=== PATIENT | female | born 2000 ===

== ENCOUNTER 2020-11-03 12:26 | Emergency (ER) | payer SELFPAY ==
[2020-11-03 12:46] VITALS: BP 117/78
--- NOTE | 2020-11-03 12:51 | Emergency Department Report ---
ED Female HPI - General Chief complaint: Vaginal Bleeding Stated complaint: 8WKS ABD PAIN/BLEEDING Source: patient Mode of arrival: Ambulatory Limitations: No Limitations - History of Present Illness Initial comments: 20-year-old [place] female reports being possibly 8 weeks emerge department complaining of abdominal pain associated with some nausea and vomiting. The pain does associate to the epigastric region and does radiate to the right right upper quadrant and across the lower area. She reports no dysuria no hematuria no fevers, chills, sweats. Port[place] reports no trauma. She has not yet follow-up with an [facility] has no known history of any liver or gall bladder disease. -: Gradual Location: suprapubic Radiation: non-radiating Severity: mild Quality: dull, aching Consistency: constant Improves with: none Worsens with: none Are you Now?: Yes Associated Symptoms: denies: headaches, loss of appetite, shortness of breath, syncope, weakness - Related Data Previous Rx's Medication Instructions Recorded Last Taken Type Doxylamine Succinate/Vit B6 1 each PO BID PRN #20 tablet. 11/03/20 Unknown Rx [Tyler Velazquez 10-10 mg Tablet] Vit No.112/Folate No6 1 mg PO DAILY #30 tab.chew 11/03/20 Unknown Rx [Prenate Chewable Tablet] Allergies Allergy/AdvReac Type Severity Reaction Status Date / Time No Known Allergies Allergy Unverified 11/03/20 12:46 ED Review of Systems ROS: Stated complaint: 8WKS ABD PAIN/BLEEDING Other details as noted in HPI Comment: All other systems reviewed and negative ED Past Medical Hx - Past Medical History Previous Medical History?: No - Surgical History Past Surgical History?: No - Social History Smoking Status: Former Smoker Substance Use Type: None - Medications Home Medications: Home Medications Medication Instructions Recorded Confirmed Last Taken Type Doxylamine Succinate/Vit B6 1 each PO BID PRN #20 tablet. 11/03/20 Unknown Rx [Tyler Velazquez 10-10 mg Tablet] Vit No.112/Folate No6 1 mg PO DAILY #30 tab.chew 11/03/20 Unknown Rx [Prenate Chewable Tablet] ED Physical Exam - General Limitations: No Limitations General appearance: alert, in no apparent distress - Head Head exam: Present: atraumatic, normocephalic - Eye Eye exam: Present: normal appearance - ENT ENT exam: Present: mucous membranes moist - Neck Neck exam: Present: normal inspection - Respiratory Respiratory exam: Present: normal lung sounds bilaterally. Absent: respiratory distress - Cardiovascular Cardiovascular Exam: Present: regular rate, normal rhythm. Absent: systolic murmur, diastolic murmur, rubs, gallop - GI/Abdominal GI/Abdominal exam: Present: soft, tenderness (Tenderness to the epigastric region into the right upper quadrant with palpation.), normal bowel sounds - Extremities Exam Extremities exam: Present: normal inspection - Back Exam Back exam: Present: normal inspection - Neurological Exam Neurological exam: Present: alert, oriented X3 - Psychiatric Psychiatric exam: Present: normal affect, normal mood - Skin Skin exam: Present: warm, dry, intact, normal color. Absent: rash ED Course Vital Signs 11/03/20 12:43 Temperature 97.9 F Pulse Rate 78 Respiratory 18 Rate Blood Pressure 117/78 O2 Sat by Pulse 96 Oximetry ED Medical Decision Making - Lab Data Result diagrams: 11/03/20 12:53 11/03/20 12:53 Critical care attestation.: If time is entered above; I have spent that time in minutes in the direct care of this critically ill patient, excluding procedure time. ED Disposition Clinical Impression: Vaginal bleeding in patient after first trimester, , twins Disposition: DC-01 TO HOME OR SELFCARE Is pt being admited?: No Does the pt Need Aspirin: No Condition: Stable Instructions: Activity Restriction During Prescriptions: Doxylamine Succinate/Vit B6 [Tyler Velazquez 10-10 mg Tablet] 1 each PO BID PRN #20 tablet. PRN Reason: nausea Vit No.112/Folate No6 [Prenate Chewable Tablet] 1 mg PO DAILY #30 tab.chew Referrals: [facility] [Primary Care Provider] - 3-5 Days [facility] [Provider Group] - 3-5 Days [facility] [Provider Group] - 3-5 Days [facility] [Provider Group] - 3-5 Days [facility] [Provider Group] - 3-5 Days
[2020-11-03 13:14] LABS: Basophils % (Auto) 0.5 % (0.0-1.8); Eosinophils # (Auto) 0.2 K/mm3 (0.0-0.4); Eosinophils % (Auto) 2.9 % (0.0-4.3); Hematocrit 36.1 % (30.3-42.9); Hemoglobin 12.8 gm/dl (10.1-14.3); Lymphocytes % (Auto) 39.2 % (13.4-35.0); Mean Corpuscular HGB Conc 35 % (30-34); Mean Corpuscular Volume 90 fl (79-97); Monocytes # (Auto) 0.4 K/mm3 (0.0-0.8); Monocytes % (Auto) 8.5 % (0.0-7.3); Platelet Count 258 K/mm3 (140-440); Red Blood Count 4.03 M/mm3 (3.65-5.03); Red Cell Distribution Width 14.1 % (13.2-15.2)
[2020-11-03 13:28] LABS: Blood Urea Nitrogen 5 mg/dL (7-17); Calcium 9.1 mg/dL (8.4-10.2); Hemolysis Index 5
[2020-11-03 13:29] LABS: BUN/Creatinine Ratio 10
[2020-11-03 13:30] LABS: Alanine Aminotransferase 6 units/L (7-56); Albumin 3.9 g/dL (3.9-5)
[2020-11-03 13:33] LABS: Bilirubin,Direct < 0.2 mg/dL (0-0.2)
[2020-11-03 14:44] LABS: Bacteria,Urine 1+ /HPF (Negative); Bilirubin,Urine NEG (Negative); Blood,Urine NEG (Negative); Color,Urine Yellow (Yellow); Protein,Urine <15 mg/dL mg/dL (Negative); Urobilinogen,Urine < 2.0 mg/dL (<2.0)
--- NOTE | 2020-11-03 15:23 | Ultrasound Report ---
Please see the report for the concomitantly performed pelvic ultrasound. Signer Name: Juan Hughes MD Signed: 11/03/2020 3:19 PM Workstation Name: [id number]
--- NOTE | 2020-11-03 15:23 | Ultrasound Report ---
ULTRASOUND OBSTETRIC INDICATION: Pelvic pain, 9 weeks, 5 days . TECHNIQUE: Transabdominal and Transvaginal. COMPARISON: None available. FINDINGS: GESTATIONAL SAC: There are 2 intrauterine gestational sacs. YOLK SAC: An unremarkable yolk sac is seen within each gestational sac. EMBRYO/FETUS A: No significant abnormality. - Brent-Rump Length = 3.4 cm = 10 weeks, 2 day(s). - Heart Rate = 176 beats per minute. EMBRYO/FETUS B: No significant abnormality. - Brent-Rump Length = 3.3 cm = 10 weeks, 1 day(s). - Heart Rate = 160 beats per minute. ADNEXA: No significant abnormality. FREE FLUID: None. ADDITIONAL FINDINGS: None. IMPRESSION: Live twin intrauterine as above. No acute abnormality. Signer Name: Juan Hughes MD Signed: 11/03/2020 3:18 PM Workstation Name: [id number]
--- NOTE | 2020-11-03 15:31 | Ultrasound Report ---
This examination was dictated along with ultrasound OB transvaginal performed the same day. Please re milka to that report. Signer Name: Husam Jean Jr, MD Signed: 11/03/2020 3:27 PM Workstation Name: [id number]
== END 2020-11-03 16:42 | disposition home or self-care (01) ==
LOC: ED 12:26
DX: O20.9 Hemorrhage in early pregnancy, unspecified (principal); O30.001 Twin pregnancy, unspecified number of placenta and unspecified number of amniotic sacs, first trimester; Z3A.08 8 weeks gestation of pregnancy; O99.331 Smoking (tobacco) complicating pregnancy, first trimester; Z79.899 Other long term (current) drug therapy
CPT/HCPCS: 36415; 76801; 76802; 76817; 80048; 80076; 81001; 83690; 84702; 85025; 87086